=== PATIENT | female | born 1950 | race Caucasian/White ===

== ENCOUNTER 2017-01-01 14:07 | Outpatient (CLI) | payer MEDICARE, OTHER ==
--- NOTE | 2017-01-01 18:46 | Ultrasound Report ---
AORTA SCREEN: 01/01/2017 CLINICAL INDICATION: Loud bruit. TECHNIQUE: Real-time sonographic imaging was performed by the pen rider through the aorta. Multiple medical service representative static images were saved for review. The abdominal aorta is normal in caliber, measuring 2.2 cm proximally, 1.7 cm in the mid portion, and 1.8 cm distally. The iliacs are normal in caliber. No free fluid is present. IMPRESSION: NO EVIDENCE OF ABDOMINAL AORTIC ANEURYSM. JOB #: [id number] EXT JOB #: [id number]
== END 2017-01-01 14:08 | disposition home or self-care (01) ==
LOC: DI 14:07
PROVIDERS: ATTEND Internal Medicine
DX: R01.2 Other cardiac sounds (principal); I34.0 Nonrheumatic mitral (valve) insufficiency
CPT/HCPCS: 76706; 93306

== ENCOUNTER 2019-10-27 13:18 | Outpatient (CLI) | payer MEDICARE, OTHER | END 2019-10-27 13:19 | disposition home or self-care (01) | LOC: COV 13:18 | PROVIDERS: ATTEND Family Medicine | DX: R53.83 Other fatigue (principal); Z20.828 Contact with and (suspected) exposure to other viral communicable diseases ==

== ENCOUNTER 2021-04-26 22:34 | Outpatient (CLI) | payer MEDICARE, OTHER | END 2021-04-26 22:35 | disposition critical access hospital (66) | LOC: EMS 22:34 | DX: R56.9 Unspecified convulsions (principal) | CPT/HCPCS: A0425; A0429 ==

== ENCOUNTER 2021-04-26 23:06 | Emergency (ER) | payer MEDICARE, OTHER ==
--- NOTE | 2021-04-26 23:37 | ED Physician Documentation ---
PD HPI SEIZURE - Stated complaint Stated Complaint: SEIZURE - Chief complaint Chief Complaint: Neuro - History obtained from History obtained from: Patient - History of Present Illness Timing - onset: Enter time (20:30), Today Witnessed: Unwitnessed Number of seizures: Other (no witnesses so unclear how long seizure lasted; patient estimates roughly 40-45 minutes from beginning of event to when she felt back to baseline mental status) Description of seizure activity: LOC Injury during seizure: None Pain level now: 2 History of seizures: Known seizure disorder Contributing factors: Changed meds (recent medication change (see below)) - Additional information Additional information: BIBA for seizure. Patient has epilepsy. At approximately 8:30 PM tonight, she had feeling that she was about to have a seizure. She cannot describe what constitutes this pre-seizure sensation but she says she has had this feeling before having previous seizures. She sat down on the floor and subsequently had LOC. As there were no witnesses to the seizure, unknown length of seizure but she estimates approximately 40-45 minutes before she felt she was back at baseline mental status and she then called 911. She had no pain initially but en route to ED she developed mild neck pain and EMS placed her in a cervical collar. Patient had been on Dilantin for over 20 years (she says since 1980s) but recently was weaned off due to Dilantin interfering with her vitamin D levels. She was started on keppra a little over a month ago, began Dilantin wean one month ago, finished the taper last week. She has not had a seizure since 2018 .She is on 500mg BID keppra. FSBS by EMS 128. Review of Systems Constitutional: reports: Myalgias. denies: Fever, Chills Eyes: reports: Reviewed and negative Cardiac: reports: Reviewed and negative Respiratory: reports: Reviewed and negative GI: reports: Reviewed and negative Musculoskeletal: reports: Neck pain. denies: Back pain, Extremity pain, Joint pain, Extremity swelling, Joint swelling, Pain with weight bearing Neurologic: reports: Seizure. denies: Generalized weakness, Focal weakness, Numbness, Headache PD PAST MEDICAL HISTORY - Past Medical History Past Medical History: Yes Neuro: Seizure disorder - Present Medications Home Medications: Ambulatory Orders Medication Instructions Recorded Confirmed Levetiracetam [Keppra] 500 mg PO BID 04/27/21 04/27/21 - Allergies Allergies/Adverse Reactions: Allergies Allergy/AdvReac Type Severity Reaction Status Date / Time No Known Drug Allergies Allergy Verified 04/26/21 23:12 - Living Situation Living Situation: reports: Alone Living Arrangement: reports: At home PD ED PE NORMAL - Vitals Vital signs reviewed: Yes - General General: Alert and oriented X 3, No acute distress, Well developed/nourished, Other (cervical collar in place) - HEENT HEENT: PERRL, EOMI, Other (left lateral aspect of tip of tongue is abraded and echymotic without laceration or swelling) - Cardiac Cardiac: RRR, No murmur - Respiratory Respiratory: No respiratory distress, Clear bilaterally - Abdomen Abdomen: Soft, Non tender - Derm Derm: Normal color, Warm and dry - Neuro Neuro: Alert and oriented X 3, master rigger 2-12 intact, No motor deficit, No sensory deficit, Normal speech Eye Opening: Spontaneous Motor: Obeys Commands Verbal: Oriented GCS Score: 15 Results - Vitals Vitals: Oxygen O2 Source Room air - EKG (time done) No standard instances Rate: Rate (enter#) (72) Rhythm: NSR [place]: Normal Intervals: Normal [place] QRS: Normal Ischemia: Normal ST segments - Rads (name of study) CT cervical spine Radiology: Prelim report reviewed, See rad report PD MEDICAL DECISION MAKING - ED course Complexity details: reviewed results, re-evaluated patient, considered differential, d/w patient ED course: after CT cervical spine read by radiology (no acute findings), I removed c- collar. She is nontender midline with FROM (rotation, flexion, extension) that does not worsen discomfort. I removed the c-collar at 1:50 AM She has no other c/o besides mild neck pain and recent medication taper/transition (dilantin to keppra) is likely reason for the seizure; no other emergent testing indicated at this time beyond the CT neck and EKG. I discussed this case with Dr. Howard, neurology homemaker companion at [facility] (patients neurologist is at [facility] but [facility] neurology covering at this time). She recommends IV keppra load 1 gram, with instruction to take 750mg BID keppra tomorrow followed by 1000mg BID keppra until she is seen in follow up by her neurology group. The keppra load of 1 gram is given IV and patient is subsequently discharged. No seizure activity during ED stay. Results of CT reviewed, recommendations from the neurologist discussed, follow up and return precautions also discussed. Departure - Departure Disposition: 01 Home, Self Care Clinical Impression: Seizure Condition: Good Instructions: ED Seizure Recurrent Comments: I discussed your case with an on-call neurologist at [facility] (the [facility] neurologists cover the [place] neurologists on overnights). She recommends that you increase your keppra to 750mg twice per day for today only (April,), and then increase to 1000mg twice per day (starting April 28). Continue the keppra at 1000mg twice per day until and unless your neurologist advises otherwise. Contact your neurologist Thursday morning to see if an appointment can be arranged for this coming week. Discharge Date/Time: 04/27/21 03:50
--- OUTSIDE RECORDS SUMMARY | 2021-04-26 23:46 | EXTERNAL MEDICAL SUMMARY RPT | Continuity of Care Document ---
:1950 Author Organization [facility] Address [address] [place] [address] Phone Care Team Providers Name Role Phone PA-C Unavailable Unavailable Registrar Unavailable Unavailable Allergies No information. Encounters No information. Medications date description facility 20210206 phenytoin sodium extended [facility] Problems date description facility 20210206 Total score? [facility] [place] 20210206 Tinnitus, unspecified [facility] [place] 20210206 Tinnitus, left ear [facility] [place] 20210206 Tinnitus [facility] [place] 20210206 Never smoker [facility] [place] 20210206 Details of drug misuse behavior [facility] [place] 20210206 Alcohol use [facility] [place] 20210206 No current problems or disability - Al l unknown Results No information. Vital Signs date measurement value source 20210206 weight_standard 108.38 lb 20210206 weight_metric 49.16 kg 20210206 temperature_standard 97.4 F 20210206 temperature_metric 36.33 C 20210206 respiration_rate 16 /min 20210206 height_standard 60 in 20210206 height_metric 152.4 cm 20210206 heart_rate 71 /min 20210206 BP_systolic 127 mm[Hg] 20210206 BP_diastolic 77 mm[Hg] 20210206 BMI 21.24 kg/m2
[2021-04-27] MEDS ORDERED: levETIRAcetam INJ 1,000 MG in SODIUM CHLORIDE 0.9% 100ML 100 ML IV STA (00:08)
--- NOTE | 2021-04-27 00:25 | CT Report ---
PROCEDURE: CERVICAL SPINE WO INDICATIONS: neck pain, post-ictal, possible fall TECHNIQUE: Noncontrast 3 mm thick sections acquired from the skull base to the T4 level. Sagittal and coronal r eformats were then constructed. For radiation dose reduction, the following was used: automated exp osure control, adjustment of mA and/or kV according to patient size. COMPARISON: None. FINDINGS: Image quality: Excellent. Bones: No acute fractures or dislocations. Generalized osteopenia. Visualized superior ribs are int act. Relatively minor degenerative changes are present. Soft tissues: Prevertebral soft tissues are normal in thickness. No paravertebral hematomas. No ap ical pneumothoraces. IMPRESSION: No acute cervical spine fracture or subluxation. Reviewed by: Beny Kelsey MD on 04/27/2021 12:24 AM PST Approved by: Beny Kelsey MD on 04/27/2021 12:24 AM [facility] Station ID: [id number]
[2021-04-27 03:34] VITALS: BP 109/72
== END 2021-04-27 03:50 | disposition home or self-care (01) ==
LOC: EDUNIT# → ED 23:06 → SUPCPDRO 23:06 → ED 04-27 03:50
DX: G40.909 Epilepsy, unspecified, not intractable, without status epilepticus (principal)
CPT/HCPCS: 93005; 96365; 99284

== ENCOUNTER 2022-07-08 08:21 | Outpatient (CLI) | payer MEDICARE, OTHER ==
[2022-07-08 14:29] LABS: EOSINOPHILS # (AUTO) 0.1 10^3/uL (0.0-0.7); EOSINOPHILS % (AUTO) 2.4 %; HCT - HEMATOCRIT 39.4 % (37.0-47.0); HGB - HEMOGLOBIN 12.6 g/dL (12.0-16.0); LYMPHOCYTES # (AUTO) 0.7 10^3/uL (1.5-3.5); MEAN PLATELET VOLUME 11.1 fL (7.9-10.8); MONOCYTES # (AUTO) 0.3 10^3/uL (0.0-1.0); MONOCYTES % (AUTO) 10.8 %; NEUTROPHILS # (AUTO) 1.8 10^3/uL (1.5-6.6); NEUTROPHILS % (AUTO) 61.8 %; PLT - PLATELET COUNT 125 10^3/uL (130-450); RED BLOOD COUNT 4.06 10^6/uL (4.20-5.40); RED CELL DISTRIBUTION WIDTH 11.9 % (12.0-15.0); WHITE BLOOD COUNT 2.9 x10^3/uL (4.8-10.8)
[2022-07-08 14:30] LABS: SLIDE REVIEW? Indicated
[2022-07-08 14:50] LABS: ALBUMIN 4.2 g/dL (3.2-5.5); ALBUMIN/GLOBULIN RATIO 1.9 (1.0-2.2); ALKALINE PHOSPHATASE 93 IU/L (42-121); ALT ALANINE AMINOTRANSFERASE 18 IU/L (10-60); AST ASPARTATE AMINOTRANSFERASE 26 IU/L (10-42); BILIRUBIN,TOTAL 0.6 mg/dL (0.2-1.0); BUN - BLOOD UREA NITROGEN 8 mg/dL (6-20); CARBON DIOXIDE - CO2 30 mmol/L (21-32); CHLORIDE 102 mmol/L (101-111); CHOL/HDL RATIO 2.2 (<4.4); CHOLESTEROL 134 mg/dL; CREATININE 0.7 mg/dL (0.4-1.0); GFR - MDRD 83 (>89); GLUCOSE 90 mg/dL (70-100); HDL CHOLESTEROL 60 mg/dL; LDL CHOLESTEROL,CALCULATED 52 mg/dL; LDL/HDL RATIO 0.9 (<4.4); MAGNESIUM 2.3 mg/dL (1.7-2.8); POTASSIUM 4.2 mmol/L (3.5-5.0); SODIUM 140 mmol/L (135-145); TOTAL PROTEIN 6.4 g/dL (6.7-8.2); TRIGLYCERIDES 110 mg/dL; VLDL CHOLESTEROL 22 mg/dL
[2022-07-08 15:06] LABS: THYROID STIMULATING HORMONE 2.72 uIU/mL (0.34-5.60)
[2022-07-08 16:02] LABS: PLATELET ESTIMATE, MANUAL DECREASED (<130,000) (NORMAL); PLATELET MORPHOLOGY NORMAL APPEARANCE (NORMAL); RBC MORPHOLOGY (MULTIPLE) NORMAL APPEARANCE (NORMAL)
[2022-07-08 21:22] LABS: ESTIMATED AVERAGE GLUCOSE 111 mg/dL (70-100); HEMOGLOBIN A1c% 5.5 % (4.27-6.07)
[2022-07-09 05:13] LABS: VITAMIN D 25-HYDROXY 50.1 ng/mL (30.0-100.0)
[2022-07-10 09:10] LABS: LEVETIRACETAM (KEPPRA) 54.6 ug/mL (10.0-40.0)
== END 2022-07-08 08:22 | disposition home or self-care (01) ==
LOC: LAB.S 08:21
PROVIDERS: ATTEND Internal Medicine
DX: G40.909 Epilepsy, unspecified, not intractable, without status epilepticus (principal); Z79.899 Other long term (current) drug therapy; R25.2 Cramp and spasm; E55.9 Vitamin D deficiency, unspecified
CPT/HCPCS: 36415; 80053; 80061; 80177; 82306; 83036; 83721; 83735; 84443; 85025

== ENCOUNTER 2023-01-30 09:04 | Outpatient (CLI) | payer MEDICARE, OTHER ==
[2023-01-30 14:44] LABS: ALBUMIN 4.5 g/dL (3.2-5.5); ALBUMIN/GLOBULIN RATIO 2.1 (1.0-2.2); BILIRUBIN,TOTAL 0.6 mg/dL (0.2-1.0); CALCIUM 9.3 mg/dL (8.5-10.3); CREATININE 0.7 mg/dL (0.6-1.3); CRP HIGH SENSITIVITY 0.4 mg/L; POTASSIUM 3.5 mmol/L (3.5-4.5); TOTAL PROTEIN 6.6 g/dL (6.4-8.9)
[2023-01-30 14:49] LABS: BASOPHILS % (AUTO) 0.9 %; EOSINOPHILS % (AUTO) 1.7 %; HCT - HEMATOCRIT 39.6 % (37.0-47.0); HGB - HEMOGLOBIN 12.8 g/dL (12.0-16.0); LYMPHOCYTES % (AUTO) 28.9 %; MEAN CORPUSCULAR HEMOGLOBIN 31.4 pg (27.0-31.0); MEAN CORPUSCULAR HGB CONC 32.3 g/dL (32.0-36.0); MEAN CORPUSCULAR VOLUME 97.3 fL (81.0-99.0); MEAN PLATELET VOLUME 11.7 fL (7.9-10.8); MONOCYTES % (AUTO) 12.9 %; NEUTROPHILS % (AUTO) 55.6 %; PLT - PLATELET COUNT 134 10^3/uL (130-450); RED BLOOD COUNT 4.07 10^6/uL (4.20-5.40); RED CELL DISTRIBUTION WIDTH 12.1 % (12.0-15.0); WHITE BLOOD COUNT 2.3 x10^3/uL (4.8-10.8)
[2023-01-30 14:59] LABS: FERRITIN 55.8 ng/mL (11.0-306.8)
[2023-01-30 15:05] LABS: ABNORMAL LYMPHS % (MANUAL) 0 %
[2023-01-30 16:17] LABS: BAND NEUTROPHILS % (MANUAL) 1 %; BASOPHILS % (MANUAL) 1 %; EOSINOPHILS # (MANUAL) 0.1 10^3/uL (0-0.7); LYMPHOCYTES # (MANUAL) 0.6 10^3/uL (1.5-3.5); LYMPHOCYTES % (MANUAL) 28 %; MONOCYTES # (MANUAL) 0.4 10^3/uL (0.0-1.0); NEUTROPHILS # (MANUAL) 1.2 10^3/uL (1.5-6.6); PLATELET ESTIMATE, MANUAL DECREASED (<130,000) (NORMAL); PLATELET MORPHOLOGY NORMAL APPEARANCE (NORMAL); RBC MORPHOLOGY (MULTIPLE) NORMAL APPEARANCE (NORMAL)
[2023-01-30 16:18] LABS: DIFFERENTIAL COMMENT MANUAL DIFFERENTIAL
[2023-01-30 21:26] LABS: ESTIMATED AVERAGE GLUCOSE 105 mg/dL (70-100); HEMOGLOBIN A1c% 5.3 % (4.27-6.07)
[2023-01-31 07:10] LABS: VITAMIN D 25-HYDROXY 63.2 ng/mL (30.0-100.0)
[2023-01-31 09:09] LABS: CALCIUM IONIZED SERUM 4.6 mg/dL (4.5-5.6)
== END 2023-01-30 09:05 | disposition home or self-care (01) ==
LOC: LAB.S 09:04
PROVIDERS: ATTEND Internal Medicine
DX: D64.9 Anemia, unspecified (principal); D72.819 Decreased white blood cell count, unspecified; G40.909 Epilepsy, unspecified, not intractable, without status epilepticus; E55.9 Vitamin D deficiency, unspecified; R63.4 Abnormal weight loss; R25.2 Cramp and spasm; Z79.899 Other long term (current) drug therapy
CPT/HCPCS: 36415; 80053; 82306; 82330; 82607; 82728; 82746; 83036; 83540; 84466; 85025; 85651; 86141

== ENCOUNTER 2023-02-04 12:47 | Outpatient (CLI) | payer MEDICARE, OTHER ==
--- NOTE | 2023-02-04 15:52 | Ultrasound Report ---
PROCEDURE: Head or Neck Soft Tissue INDICATIONS: CERVICAL LYMPHADENOPATHY TECHNIQUE: Real-time scanning was performed of the cervical lymph node region with image documentation. COMPARISON: None FINDINGS: The anterior cervical chains were evaluated bilaterally with a high megahertz linear trans ducer. No enlarged lymph nodes are identified. IMPRESSION: No evidence of significant cervical lymphadenopathy. Reviewed by: Royal Yan MD on 02/04/2023 3:51 PM PST Approved by: Royal Yan MD on 02/04/2023 3:51 PM PST Station ID: [id number]
== END 2023-02-04 12:48 | disposition home or self-care (01) ==
LOC: DI 12:47
PROVIDERS: ATTEND Internal Medicine
DX: R59.0 Localized enlarged lymph nodes (principal); R63.4 Abnormal weight loss; R25.2 Cramp and spasm; Z79.899 Other long term (current) drug therapy

== ENCOUNTER 2023-02-18 09:04 | Outpatient (CLI) | payer MEDICARE, OTHER ==
[2023-02-18 17:49] LABS: THYROID STIMULATING HORMONE 1.09 uIU/mL (0.34-5.60)
== END 2023-02-18 09:05 | disposition home or self-care (01) ==
LOC: LAB.S 09:04
PROVIDERS: ATTEND Internal Medicine
DX: G40.909 Epilepsy, unspecified, not intractable, without status epilepticus (principal); R53.83 Other fatigue
CPT/HCPCS: 36415; 80177; 84443

== ENCOUNTER 2023-02-26 13:07 | Outpatient (CLI) | payer MEDICARE, OTHER ==
--- NOTE | 2023-02-26 14:28 | Ultrasound Report ---
PROCEDURE: Abdomen Complete INDICATIONS: ABD PAIN TECHNIQUE: Real-time scanning was performed of the abdominal and retroperitoneal organs, with image documentatio n. COMPARISON: Ultrasound aortic screen 12/22/2016. FINDINGS: Liver: Liver is normal in size and homogeneous in echotexture. Gallbladder: Unremarkable. Biliary ducts: Intrahepatic bile ducts are non-dilated. Extrahepatic bile duct caliber measures 4.4 mm. Normal is 6-7 mm or less in diameter, or 10 mm or less post-cholecystectomy. Pancreas: Visualized portions of the pancreas are sonographically normal. Spleen: Spleen is normal in size and homogeneous in echotexture. Kidneys: Kidneys are normal in size and echotexture. Right kidney measures 8.9 cm long; left kidney measures 11.4 cm long. No hydronephrosis or nephrolithiasis. No solid masses. Right extrarenal pel vis. Left simple cysts in the interpolar region measuring up to 0.8 cm and in the inferior pole measu ring up to 0.9 cm. No complex renal cystic lesions which require follow-up. Aorta: Visualized aorta is normal in caliber at less than 3 cm. Iliacs: Proximal common iliac arteries are normal in caliber at less than 2.5 cm. IVC: Intrahepatic inferior vena cava is patent. Miscellaneous: No free abdominal fluid. IMPRESSION: No acute process to explain patient's symptoms. Reviewed by: Stefanie Nation MD on 02/26/2023 2:26 PM PST Approved by: Stefanie Nation MD on 02/26/2023 2:26 PM PST Station ID: [id number]
== END 2023-02-26 13:08 | disposition home or self-care (01) ==
LOC: DI 13:07
PROVIDERS: ATTEND Internal Medicine
DX: R10.31 Right lower quadrant pain (principal)

== ENCOUNTER 2023-07-26 15:55 | Outpatient (CLI) | payer MEDICARE, OTHER | END 2023-07-26 23:59 | disposition EMS.NT | LOC: EMS 15:55 | DX: M54.50 Low back pain, unspecified (principal) ==

== ENCOUNTER 2023-07-31 08:00 | Outpatient (CLI) | payer MEDICARE, OTHER ==
--- NOTE | 2023-08-02 06:42 | XRAY Report ---
PROCEDURE: Abdomen 2 V INDICATIONS: CONSTIPATION/LEFT LOWER QUAD LUMP TECHNIQUE: 2 views of the abdomen were acquired. COMPARISON: None. FINDINGS AND IMPRESSION: Fecal loading is moderate to large. Bowel gas pattern is nonspecific, nonobstructive. No suspicious calcifications. Osseous degenerative changes. Partially visualized lower lungs are unremarkable. Consider targeted ultrasound for the left lower quadrant lump if indicated. Reviewed by: Cristian Clement MD on 08/02/2023 6:40 AM PDT Approved by: Cristian Clement MD on 08/02/2023 6:40 AM PDT Station ID: [id number]
== END 2023-07-31 23:59 | disposition home or self-care (01) ==
LOC: DI.S 08:00
PROVIDERS: ATTEND Registered Nurse
DX: K59.00 Constipation, unspecified (principal); R19.04 Left lower quadrant abdominal swelling, mass and lump; R82.79 Other abnormal findings on microbiological examination of urine; R31.9 Hematuria, unspecified; R10.9 Unspecified abdominal pain
CPT/HCPCS: 87086

== ENCOUNTER 2023-07-31 08:00 | Outpatient (CLI) | payer MEDICARE, OTHER | END 2023-07-31 23:59 | disposition home or self-care (01) | LOC: LAB.N 08:00 | PROVIDERS: ATTEND Registered Nurse | DX: R10.9 Unspecified abdominal pain (principal); R82.79 Other abnormal findings on microbiological examination of urine; R31.9 Hematuria, unspecified | CPT/HCPCS: 87086 ==

== ENCOUNTER 2023-10-02 12:27 | Outpatient (CLI) | payer MEDICARE, OTHER ==
[2023-10-02 20:16] LABS: BASOPHILS % (AUTO) 0.8 %; EOSINOPHILS % (AUTO) 0.5 %; HCT - HEMATOCRIT 39.1 % (37.0-47.0); HGB - HEMOGLOBIN 12.8 g/dL (12.0-16.0); LYMPHOCYTES # (AUTO) 0.6 10^3/uL (1.5-3.5); MEAN CORPUSCULAR HEMOGLOBIN 32.5 pg (27.0-31.0); MEAN CORPUSCULAR HGB CONC 32.7 g/dL (32.0-36.0); MEAN CORPUSCULAR VOLUME 99.2 fL (81.0-99.0); MEAN PLATELET VOLUME 10.6 fL (7.9-10.8); MONOCYTES # (AUTO) 0.5 10^3/uL (0.0-1.0); MONOCYTES % (AUTO) 14.5 %; NEUTROPHILS # (AUTO) 2.6 10^3/uL (1.5-6.6); NEUTROPHILS % (AUTO) 68.9 %; PLT - PLATELET COUNT 157 10^3/uL (130-450); RED BLOOD COUNT 3.94 10^6/uL (4.20-5.40); RED CELL DISTRIBUTION WIDTH 13.1 % (12.0-15.0); WHITE BLOOD COUNT 3.7 x10^3/uL (4.8-10.8)
[2023-10-02 20:24] LABS: PHENYTOIN (DILANTIN) 11.3 ug/mL
== END 2023-10-02 12:28 | disposition home or self-care (01) ==
LOC: LAB.S 12:27
PROVIDERS: ATTEND Internal Medicine
DX: D72.819 Decreased white blood cell count, unspecified (principal); D64.9 Anemia, unspecified; E55.9 Vitamin D deficiency, unspecified; R53.83 Other fatigue; Z79.899 Other long term (current) drug therapy; G40.909 Epilepsy, unspecified, not intractable, without status epilepticus
CPT/HCPCS: 36415; 80185; 82306; 82607; 82746; 85025

== ENCOUNTER 2023-10-15 14:20 | Outpatient (CLI) | payer MEDICARE, OTHER ==
[2023-10-15 14:57] LABS: ALBUMIN 4.1 g/dL (3.2-5.5); ALBUMIN/GLOBULIN RATIO 1.9 (1.0-2.2); BILIRUBIN,TOTAL 0.3 mg/dL (0.2-1.0); CALCIUM 8.7 mg/dL (8.5-10.3); CREATININE 0.5 mg/dL (0.6-1.3); POTASSIUM 3.7 mmol/L (3.5-4.5); TOTAL PROTEIN 6.3 g/dL (6.4-8.9)
== END 2023-10-15 14:21 | disposition home or self-care (01) ==
LOC: LAB 14:20
PROVIDERS: ATTEND Internal Medicine
DX: Z79.899 Other long term (current) drug therapy (principal); Z13.228 Encounter for screening for other metabolic disorders
CPT/HCPCS: 36415; 80053

== ENCOUNTER 2023-10-17 13:20 | Outpatient (CLI) | payer MEDICARE, OTHER ==
[~2023-10-17 13:20] MED LIST: GADOTERATE MEGLUMINE 5 MMOL/10 ML VIAL ONE
[2023-10-17] MEDS: GADOTERATE MEGLUMINE 5 MMOL/10 ML VIAL IVP ONE (14:40)
--- NOTE | 2023-10-20 14:42 | MRI Report ---
PROCEDURE: IAC'S W/WO INDICATIONS: HEARING LOSS, VISUAL CHANGES TECHNIQUE: Multiplanar multi sequential MRI images of the brain and skull base with and without intr avenous contrast were obtained. Thin section T2 weighted images through both internal auditory canals were also obtained. COMPARISON: None. FINDINGS: Internal auditory canals: Cisternal and intracanalicular segments of both 7th and 8th cranial nerve c omplexes are unremarkable. No abnormal enhancement. Inner ear structures are appropriately formed. CSF spaces: Ventricles are normal in size and shape. No extra-axial fluid collections. Basal ciste rns are patent. Brain: No intracranial bleeds or mass effects. Fields-white matter interface is intact. No abnormal intracranial enhancement. Diffusion weighted images demonstrate no acute infarct. Brainstem appears normal. Normal intravascular flow voids are present. Incidental short fenestration noted in the pr oximal basilar artery Skull and face: Calvarial marrow signal is normal. Orbits appear normal. Sinuses: Sinuses and mastoids are clear. IMPRESSION: Unremarkable MRI of the brain and internal auditory canals without evidence of acoustic schwannoma Reviewed by: Gwyn Daniels MD on 10/20/2023 1:41 PM [facility] Approved by: Gwyn Daniels MD on 10/20/2023 1:41 PM [facility] Station ID: [id number]
== END 2023-10-17 13:21 | disposition home or self-care (01) ==
LOC: DI 13:20
PROVIDERS: ATTEND Internal Medicine
DX: H91.91 Unspecified hearing loss, right ear (principal); H53.9 Unspecified visual disturbance; S06.2X0S Diffuse traumatic brain injury without loss of consciousness, sequela
CPT/HCPCS: 70553; A9575